=== PATIENT | female | born 1995 | race Caucasian/White ===

== ENCOUNTER 2018-09-30 22:28 | Emergency (ER) | payer OTHER ==
[~2018-09-30] VITALS: Ht 165.1 cm; Wt 86.2 kg
[2018-09-30] MEDS ORDERED: prozac (22:52)
[2018-09-30] MEDS ORDERED: abilify (22:52)
[2018-09-30] MEDS ORDERED: trazodone (22:52)
[2018-09-30 22:53] VITALS: BP 134/80
--- NOTE | 2018-09-30 23:27 | RAD ---
CT brain without contrast. HISTORY: Fell head trauma, can contusion swelling frontal region CT brain CT scan of brain was done without contrast. There is no skull fracture. Sinuses are clear. There is mild extracranial swelling on the forehead. There is no intracranial hemorrhage or subdural hematoma. There is no mass or shift of the midline. Ventricles are normal in size. IMPRESSION: 1. No intracranial hemorrhage or acute finding noted. Electronically signed by: Noah Aguirre MD (09/30/2018 11:23 PM) [facility]
--- NOTE | 2018-09-30 23:32 | PHYS DOC ---
Adult General Chief Complaint Chief Complaint: MECHANICAL FALL HPI HPI 23-year-old female presents with fall. The patient is a prisoner and is accompanied by guards. She was at the assisted dancing in her socks when she slipped and smacked her forehead against the ladder. She does not believe that she was knocked out. She has no other pain at this time. She specifically denies neck pain. She has a headache but no other areas of pain. Denies fever or chills. Review of Systems Review of Systems Constitutional: Denies fever or chills [] Eyes: Denies change in visual acuity, redness, or eye pain [] HENT: Denies nasal congestion or sore throat [] Respiratory: Denies cough or shortness of breath [] Cardiovascular: No additional information not addressed in HPI [] GI: Denies abdominal pain, nausea, vomiting, bloody stools or diarrhea [] : Denies dysuria or hematuria [] Musculoskeletal: Denies back pain or joint pain [] Integument: Denies rash or skin lesions [] Neurologic: Headache. Denies focal weakness or sensory changes [] Endocrine: Denies polyuria or polydipsia [] All other systems were reviewed and found to be within normal limits, except as documented in this note. Allergies Allergies Allergies Coded Allergies Type Severity Reaction Last Updated Verified peanut Allergy Severe 09/30/18 Yes latex Allergy Intermediate 09/30/18 Yes Physical Exam Physical Exam Constitutional: Well developed, well nourished, no acute distress, non-toxic appearance. [] HENT: Normocephalic, 2.5 cm superficial hematoma of the forehead, bilateral external ears normal, oropharynx moist, no oral exudates, nose normal. [] Eyes: PERRLA, EOMI, conjunctiva normal, no discharge. [] Neck: Normal range of motion, no tenderness, supple, no stridor. [] Cardiovascular:Heart rate regular rhythm, no murmur [] Lungs & Thorax: Bilateral breath sounds clear to auscultation [] Abdomen: Bowel sounds normal, soft, no tenderness, no masses, no pulsatile masses. [] Skin: Warm, dry, no erythema, no rash. [] Back: No tenderness, no CVA tenderness. [] Extremities: No tenderness, no cyanosis, no clubbing, ROM intact, no edema. [] Neurologic: Alert and oriented X 3, normal motor function, normal sensory function, no focal deficits noted. [] Psychologic: Affect normal, judgement normal, mood normal. [] Current Patient Data Vital Signs Vital Signs Date Time Temp Pulse Resp B/P (MAP) Pulse Ox O2 Delivery O2 Flow Rate FiO2 09/30/18 22:53 98.1 83 20 134/80 (98) 100 Room Air EKG EKG [] Radiology/Procedures Radiology/Procedures [] Impressions: CT brain without contrast. HISTORY: Fell head trauma, can contusion swelling frontal region CT brain CT scan of brain was done without contrast. There is no skull fracture. Sinuses are clear. There is mild extracranial swelling on the forehead. There is no intracranial hemorrhage or subdural hematoma. There is no mass or shift of the midline. Ventricles are normal in size. IMPRESSION: 1. No intracranial hemorrhage or acute finding noted. Electronically signed by: Carol Leavitt MD (09/30/2018 11:23 PM) [facility] DICTATED AND SIGNED BY: CAROL LEAVITT MD DATE: 09/30/182320 CC: GISSELLE LOPEZ DO; PCP,ELVA Course & Med Decision Making Course & Med Decision Making Pertinent Labs and Imaging studies reviewed. (See chart for details) The patient's head CT is unremarkable. The patient has been appropriate and able to answer all questions throughout her stay in the ED. She is stable for discharge at this time. We will give her 500 mg naproxen for her headache. [] Dragon Disclaimer Dragon Disclaimer This electronic medical record was generated, in whole or in part, using a voice recognition dictation system. Departure Departure: Referrals: PCPEL[facility] (PCP) GISSELLE LOPEZ DO Sep 30, 2018 23:32
[2018-09-30] MEDS: NAPROXEN 500 MG TABLET PO ONE (23:42)
== END 2018-09-30 23:35 | disposition home or self-care (01) ==
LOC: ER 22:28
DX: S00.83XA Contusion of other part of head, initial encounter (principal); R51 Headache; Z91.040 Latex allergy status; Z91.010 Allergy to peanuts; W22.8XXA Striking against or struck by other objects, initial encounter; Y93.41 Activity, dancing; Y92.148 Other place in prison as the place of occurrence of the external cause; Y99.0 Civilian activity done for income or pay
CPT/HCPCS: 70450; 99284-25

== ENCOUNTER 2021-07-14 05:43 | Emergency (ER) | payer OTHER ==
[~2021-07-14] VITALS: Ht 165.1 cm; Wt 105.0 kg
[~2021-07-14 05:43] MED LIST: abilify; prozac; trazodone
[2021-07-14 05:50] VITALS: BP 137/69
--- NOTE | 2021-07-14 06:06 | PHYS DOC ---
Past History Past Medical History: Anxiety, Bipolar, Depression, Schizophrenia Past Surgical History: No Surgical History Additional Smoking Information: vapes Alcohol Use: None Drug Use: Cocaine, Heroin, Methamphetamine General Adult EDM: Chief Complaint: NAUSEA/VOMITING/DIARRHEA HPI: HPI: 26-year-old female presents via EMS from the [facility] after an episode of vomiting. The patient tells me that she was talking to her me the morning and felt like she was hungry. She was also very sleepy and falling asleep. She had 1 episode of vomiting fell asleep. She woke up to several people standing around her. EMS checked her blood sugar and it was 71. The patient does not have an official history of diabetes. She is not on insulin. [facility] wanted the patient evaluated. The patient does not want to be cared on in the emergency room. She just wanted to have something to eat. She is eating a sandwich and chips during my interview. She states she feels much better right now. No further nausea. She has no complaints. Review of Systems: Review of Systems: Constitutional: Denies fever or chills Eyes: Denies change in visual acuity HENT: Denies nasal congestion or sore throat Respiratory: Denies cough or shortness of breath Cardiovascular: Denies chest pain or edema GI: Vomiting x1. Denies abdominal pain, nausea, bloody stools or diarrhea : Denies dysuria Musculoskeletal: Denies back pain or joint pain Integument: Denies rash Neurologic: Denies headache, focal weakness or sensory changes Endocrine: Denies polyuria or polydipsia Lymphatic: Denies swollen glands Psychiatric: Denies depression or anxiety Allergies: Allergies: Allergies Coded Allergies Type Severity Reaction Last Updated Verified peanut Allergy Severe 07/14/21 Yes latex Allergy Intermediate 07/14/21 Yes Physical Exam: PE: Constitutional: Well developed, well nourished, obese, no acute distress, non- toxic appearance. [] HENT: Normocephalic, atraumatic, bilateral external ears normal, oropharynx moist, no oral exudates, nose normal. [] Eyes: PERRLA, EOMI, conjunctiva normal, no discharge. [] Neck: Normal range of motion, no tenderness, supple, no stridor. [] Cardiovascular: Heart rate 85, regular rhythm, no murmur [] Lungs & Thorax: Bilateral breath sounds clear to auscultation [] Abdomen: Bowel sounds normal, soft, no tenderness, no masses, no pulsatile masses. [] Skin: Warm, dry, no erythema, no rash. [] Back: No tenderness, no CVA tenderness. [] Extremities: No tenderness, no cyanosis, no clubbing, ROM intact, no edema. [] Neurologic: Alert and oriented X 3, normal motor function, normal sensory function, no focal deficits noted. [] Psychologic: Affect normal, judgement normal, mood normal. [] Current Patient Data: Vital Signs: Vital Signs Date Time Temp Pulse Resp B/P (MAP) Pulse Ox O2 Delivery O2 Flow Rate FiO2 07/14/21 05:50 98.3 94 18 137/69 (91) 100 Room Air EKG: EKG: [] Radiology/Procedures: Radiology/Procedures: [] Heart Score: C/O Chest Pain: N/A Risk Factors: Risk Factors: DM, Current or recent (<one month) smoker, HTN, HLP, family history of CAD, obesity. Risk Scores: Score 0 - 3: 2.5% MACE over next 6 weeks - Discharge Home Score 4 - 6: 20.3% MACE over next 6 weeks - Admit for Clinical Observation Score 7 - 10: 72.7% MACE over next 6 weeks - Early Invasive Strategies Course & Med Decision Making: Course & Med Decision Making Pertinent Labs and Imaging studies reviewed. (See chart for details) My initial examination of the patient was benign. She remembers the events of this evening. She denies passing out. She has had transient episodes of low blood sugar in the past. She does not feel like anything unusual happened and she has no concerns. Her vitals are all within normal limits and she is fully alert and aware of her situation and surroundings. She is stable for discharge at this time. [] Dragon Disclaimer: [employer] Disclaimer: This electronic medical record was generated, in whole or in part, using a voice recognition dictation system. Departure Departure: Impression: Primary Impression: Vomiting Qualified Codes: R11.11 - Vomiting without nausea Additional Impression: Hypoglycemia Disposition: HOME / SELF CARE / HOMELESS Condition: STABLE Referrals: PCP,NO (PCP) Patient Instructions: Hypoglycemia, [id number], Nausea and Vomiting, [id number] GISSELLE LOPEZ DO Jul 14, 2021 06:06
== END 2021-07-14 06:12 | disposition home or self-care (01) ==
LOC: ER 05:43
DX: R11.10 Vomiting, unspecified (principal); E16.2 Hypoglycemia, unspecified; F41.9 Anxiety disorder, unspecified; F31.9 Bipolar disorder, unspecified; F20.9 Schizophrenia, unspecified; F17.200 Nicotine dependence, unspecified, uncomplicated; Z91.040 Latex allergy status; Z91.010 Allergy to peanuts
CPT/HCPCS: 99283